=== PATIENT | male | born 1990 | race African-American/Black ===

== ENCOUNTER 2019-11-19 23:52 | Emergency (ER) | payer OTHER ==
[~2019-11-19] VITALS: Ht 193 cm; Wt 95.0 kg
[2019-11-20 02:35] VITALS: BP 113/70
--- NOTE | 2019-11-20 02:44 | NUR ---
Pt requested blankets, provided.
[2019-11-20 03:02] LABS: MICROSCOPIC NOT IND
--- NOTE | 2019-11-20 03:02 | NUR ---
Pt resting quietly and comfortably, voices no complaints or needs at this time.
[2019-11-20 03:14] LABS: AMPHETAMINE SCREEN, URINE Negative (Negative); BARBITURATE SCREEN, URINE Negative (Negative); BENZODIAZEPINE SCREEN, URINE Negative (Negative); CANNABINOID SCREEN, URINE Positive (Negative); COCAINE SCREEN, URINE Negative (Negative); METHADONE SCREEN, URINE Negative (Negative); OPIATE SCREEN, URINE Negative (Negative)
== END 2019-11-20 04:13 | disposition home or self-care (01) ==
LOC: ED 11-20 03:45
DX: F41.9 Anxiety disorder, unspecified (principal); R30.0 Dysuria; R41.82 Altered mental status, unspecified; Z72.9 Problem related to lifestyle, unspecified
CPT/HCPCS: 80307; 81003; 87491; 87591; 99283

== ENCOUNTER 2019-11-21 12:25 | Emergency (ER) | payer MEDICAID, OTHER ==
[~2019-11-21] VITALS: Ht 193 cm; Wt 96.3 kg
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
[2019-11-21] MEDS ORDERED: ZIPRASIDONE 20 MG INJ IM ONE (13:00)
--- NOTE | 2019-11-21 13:12 | NUR ---
Break rn- hold/cancel geodon per PABLO weiner.
[2019-11-21 13:24] LABS: CHLORIDE 110 mmol/L (98-107)
[2019-11-21] MEDS ORDERED: PLEASE ENTER ALLERGIES MC SCH (13:30)
[2019-11-21 13:35] LABS: MEAN CORPUSCULAR HGB CONC 32.2 g/dL (33.2-36.2); MEAN CORPUSCULAR VOLUME 93.2 fL (81-97); MEAN PLATELET VOLUME 8.8 fL (7.4-10.4); PLATELET COUNT 182 x10^3/uL (130-400); RED BLOOD COUNT 4.87 x10^6/uL (4.38-5.82); RED CELL DISTRIBUTION WIDTH 15.4 % (9.4-14.8)
[2019-11-21 13:39] LABS: ALBUMIN 4.2 g/dL (3.4-5.0); ANION GAP 6 mmol/L (5-15)
[2019-11-21 13:41] LABS: SALICYLATE LEVEL 6.9 mg/dL (2.8-20.0)
[2019-11-21 13:46] LABS: ALANINE AMINOTRANSFERASE 23 U/L (12-78); ALKALINE PHOSPHATASE 44 U/L (45-117); BILIRUBIN,TOTAL 0.5 mg/dL (0.2-1.0); TOTAL PROTEIN 7.6 g/dL (6.4-8.2)
--- NOTE | 2019-11-21 13:49 | NUR ---
RECEIVED REPORT FROM DAVID RN, PLAN OF CARE DISCUSSED
[2019-11-21 13:51] LABS: BASOPHILS # (AUTO) 0.04 x10^3/uL (0-0.1); BASOPHILS % (AUTO) 0 % (0-1); EOSINOPHILS # (AUTO) 0.06 x10^3/uL (0-0.4); EOSINOPHILS % (AUTO) 1 % (1-7); LYMPHOCYTES # (AUTO) 1.82 x10^3/uL (1-3.4); LYMPHOCYTES % (AUTO) 22 % (22-44); MD SCAN; MONOCYTES # (AUTO) 1.15 x10^3/uL (0.2-0.8); MONOCYTES % (AUTO) 14 % (2-9); NEUTROPHILS # (AUTO) 5.28 x10^3/uL (1.8-6.8); NEUTROPHILS % (AUTO) 63 % (42-75)
[2019-11-21 14:15] LABS: AMPHETAMINE SCREEN, URINE Negative (Negative); BARBITURATE SCREEN, URINE Negative (Negative); BENZODIAZEPINE SCREEN, URINE Negative (Negative); CANNABINOID SCREEN, URINE Positive (Negative); COCAINE SCREEN, URINE Negative (Negative); METHADONE SCREEN, URINE Negative (Negative); OPIATE SCREEN, URINE Negative (Negative)
--- NOTE | 2019-11-21 14:49 | NUR ---
HECTOR RISK MANAGEMENT ANALYST IN ROOM FOR EVALUATION
--- NOTE | 2019-11-21 15:22 | NUR ---
PER HECTOR PT IS PLACED ON LEGAL HOLD DUE TO UNABLE TO CARE FOR SELF AND FLIGHT ON IDEAS. BELONGINGS TO LOCKER. ORDERED MEAL
--- NOTE | 2019-11-21 15:33 | NUR ---
PACKET FAXED TO [facility]
--- NOTE | 2019-11-21 15:51 | NUR ---
MEAL PROVIDED, PT VERBALIZED NO NEEDS AT THIS TIME
[2019-11-21] MEDS ORDERED: HYDROXYZINE PAMOATE 50MG CAP PO PRN (16:30)
--- NOTE | 2019-11-21 16:57 | NUR ---
TRANSPORTER DRIVER: PT MOVED TO SECURE ROOM 40.
--- NOTE | 2019-11-21 17:05 | NUR ---
REPORT TO STEFANY MAYERS, PLAN OF CARE DISCUSSED
--- NOTE | 2019-11-21 17:22 | NUR ---
RECEIVED REPORT FROM DESIREE MAYERS
--- NOTE | 2019-11-21 17:22 | NUR ---
EQUIPMENT SECURED BEHIND PULL DOWN DOORS. SITTER IN DIRECT VIEW OF PT. TELEPHONE PUT IN LOCKER WITH BAG OF BELONGINGS. PT ONTO HOSPITAL BED FOR COMFORT.
[2019-11-21] MEDS ORDERED: ARIPIPRAZOLE 10 MG TABLET ONE (17:49)
[2019-11-21] MEDS: ARIPIPRAZOLE 10 MG TABLET PO SCH (17:53)
--- NOTE | 2019-11-21 18:51 | NUR ---
REPORT TO LEONIDES
--- NOTE | 2019-11-21 19:41 | NUR ---
PATIENT SLEEPING COMFORTABLY ATTHIS TIME, SITTER OUTSIDE OF ROOM. RN WILL CONTINUE TO MONITOR
[2019-11-21] MEDS ORDERED: HYDROXYZINE PAMOATE 50MG CAP ONE (22:04)
--- NOTE | 2019-11-21 22:07 | NUR ---
patient awake finishing his dinner, patient was requesting more medications for his anxiety, rn gave patient PRN RANDYTIRAL. Patient tolerated it well, he remains calm and cooperative. rn will continue to monitor
--- NOTE | 2019-11-22 00:17 | NUR ---
PATIENT SLEEPING IN ROOM. NAD, SITTER OUTSIDE ROOM, RN WILL CONTINUE TO MONITOR
--- NOTE | 2019-11-22 01:46 | NUR ---
PATIENT IS AWAKE, HE REQUESTED A SHOWER, RN EXPLAINED HOW IT IS NOT POSSIBLE AT THIS TIME OF NIGHT. RN GAVE PATIENT TOOTHBRUSH, TOOTHPASTE AND FACE TOWELS TO WASH UP. PATIENT REMAINS CALM AND COOPERATIVE, RN WILL CONTINUE TO MONITOR
--- NOTE | 2019-11-22 02:57 | NUR ---
TASK RN: PT ASLEEP IN [facility] AT THIS TIME; GIN. SITTER OUTSIDE OF PT ROOM FOR DIRECT OBSERVATION OF PT AT THIS TIME.
--- NOTE | 2019-11-22 06:03 | NUR ---
patient sleeping in room, resting comfortably, NAD. sitter outside patients room. rn will continue to monitor
--- NOTE | 2019-11-22 07:04 | NUR ---
REPORT RECEIVED FROM LEONIDES MAYERS. PT SLEEPING ON HOSPITAL BED W/ SITTER OUTSIDE ROOM FOR SAFETY. GIN.
[2019-11-22 07:59] VITALS: BP 133/77
--- NOTE | 2019-11-22 08:01 | NUR ---
PT AMBULATED TO THE BR W/ A STEADY GAIT. RETURNED TO ROOM. VSS, RESP EVEN AND UNLABORED. NADN. PT REQUESTING TO USE PHONE TODAY TO PAY RENT. EDUCATED ON L2K PROCESS AND THAT PSYCH CASE ASSEMBLER WOULD BE IN TO SEE HIM BETWEEN 10-11 AM TODAY AND WE WOULD REASSESS THEN. PT CALM AND COOPERATIVE.
--- NOTE | 2019-11-22 08:24 | NUR ---
BREAKFAST TRAY DELIVERED.
[2019-11-22] MEDS ORDERED: ARIPIPRAZOLE 10 MG TABLET ONE (08:44)
[2019-11-22] MEDS: ARIPIPRAZOLE 10 MG TABLET PO SCH (08:48)
--- NOTE | 2019-11-22 08:54 | NUR ---
PT MEDICATED PER EMAR. RESTING ON GURNEY W/ SITTER OUTSIDE ROOM. GARAGE DOORS DOWN FOR SAFETY.
--- NOTE | 2019-11-22 09:49 | NUR ---
PT RESTING ON GURNEY W/ SITTER OUTSIDE ROOM. GARAGE DOORS DOWN FOR SAFETY. GIN.
--- NOTE | 2019-11-22 10:59 | NUR ---
PT RESTING ON GURNEY W/ SITTER OUTSIDE ROOM. GARAGE DOORS DOWN FOR SAFETY. GIN.
--- NOTE | 2019-11-22 11:14 | NUR ---
LUNCH TRAY ORDERED.
--- NOTE | 2019-11-22 11:50 | NUR ---
LUNCH TRAY DELIVERED. PT RESTING ON HOSPITAL BED W/ SITTER OUTSIDE ROOM AND GARAGE DOORS DOWN FOR SAFETY.
--- NOTE | 2019-11-22 13:12 | NUR ---
1 PT BELONGINGS BAG RETURNED TO PT.
--- NOTE | 2019-11-22 13:43 | NUR ---
Patient given discharge instructions and they have confirmed that they understand the instructions. Patient ambulatory with steady gait.
== END 2019-11-22 13:44 | disposition home or self-care (01) ==
LOC: ED 13:36
DX: F31.9 Bipolar disorder, unspecified (principal); F22 Delusional disorders; F41.9 Anxiety disorder, unspecified; Z88.0 Allergy status to penicillin
CPT/HCPCS: 36415; 80053; 80307; 84443; 85025; 99284